=== PATIENT | female | born 2000 | race Caucasian/White ===

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

== ENCOUNTER 2019-01-07 08:40 | Emergency (ER) | payer BC ==
[2019-01-07 08:49] VITALS: BP 123/81
--- NOTE | 2019-01-07 09:28 | UC ---
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 no vision changes no photophobia, no corective lenses mild nasl congestion. no fever, chills. no [place] medications reviewed Not - History of Current Complaint Chief Complaint: UCEye Stated Complaint: LEFT EYE REDNESS Time Seen by Provider: 01/07/19 09:24 Hx Obtained From: Patient Hx Last Menstrual Period: 12/17/18 Pain Intensity: 0 - Allergies/Home Medications Allergies/Adverse Reactions: Allergies Allergy/AdvReac Type Severity Reaction Status Date / Time No Known Allergies Allergy Verified 01/07/19 08:46 PMH/Surg Hx/FS Hx/Imm Hx Previously Healthy: Yes - Surgical History Surgical History: None - Family History Known Family History: Positive: Cardiac Disease - mother, Hypertension Negative: Diabetes, Blood Disorder - Social History Occupation: Student Lives: Dormitory/Roommates Alcohol Use: Weekly Alcohol Amount: 8-10/ week Substance Use Type: None Substance Use Comment - Amount & Last Used: no longer uses marijuana Smoking Status (MU): Never Smoked Tobacco - Immunization History Vaccination Up to Date: Yes Review of Systems All Other Systems Reviewed And Are Negative: Yes Constitutional: Positive: Negative Eyes: Positive: Drainage, Eye Redness. Negative: Blurred Vision, Diplopia, Photophobia ENT: Positive: Sinus Congestion Physical Exam - Summary Physical Exam Summary: Vital Signs Reviewed: Yes A+Ox3, no distress Eyes: SYDNEE. EOM intact and full, eft eye injected, scant dried discharge medial canthus no photophonia. no stye with lid eversions, crisp fundoscopic ENT: Hearing grossly normal TM x 2 clear, turbinates boggy, mmoist, uvula midline, no exudate, no erythema Neck: Positive: Supple Respiratory: Positive: No respiratory distress, No accessory muscle use + CTA throughout no w/r Cardiovascular: RRR nl s1, s2 no m/r CBT <2 sec abd soft + BS nt/nd no guarding, no distension Musculoskeletal Exam: LUCIANO x 4 without difficulty Strength Intact, ROM Intact Neurological: Positive: Alert, + sensation throughout Psychological: Positive: Normal Response To Family Skin: Positive: no rash, no ecchymosis Triage Information Reviewed: Yes Vital Signs: Initial Vital Signs Temp 97.8 F 01/07/19 08:46 Pulse 67 01/07/19 08:46 Resp 14 01/07/19 08:46 BP 123/81 01/07/19 08:46 Pulse Ox 100 01/07/19 08:46 Eye Complaint Course/Dx - Course Course Of Treatment: Pt with mild nasal congestion and progessive left eye reddness with drainage. no fever chills no corrective lenses exam c/w conjunctivitis abx drops hygiene precaution warm soaks return precautions Pt comfortable and in agreement with plan - Differential Dx/Diagnosis Provider Diagnosis: Conjunctivitis Discharge - Sign-Out/Discharge Documenting (check all that apply): Patient Departure All imaging exams completed and their final reports reviewed: No Studies - Discharge Plan Condition: Stable Disposition: HOME Prescriptions: Polymyx/Trimethoprim OPTH* [Polytrim OPHTH*] 2 drop BOTH EYES Q8HR #1 btl Patient Education Materials: Conjunctivitis (ED) Forms: *School Release Referrals: [facility] [Outside] No Primary Care Phys,NOPCP [Primary Care Provider] - Additional Instructions: - apply eye drops to affected every 3 times a day for the next 5 days - okay to alternate ibuprofen (Advil, Motrin) 600mg and tylenol every 3 hours for pain. Take with food -apply warm, wet soaks to eye 2-3 times a day to help with secretions. Use a clean cloth each time - after you have been on eye drops for 2 days, change your pillowcase -contact the student health clinic or return with questions or concerns - Billing Disposition and Condition Condition: STABLE Disposition: Home
== END 2019-01-07 09:50 | disposition home or self-care (01) ==
LOC: UCCORT 08:40
DX: H10.9 Unspecified conjunctivitis (principal)
CPT/HCPCS: 99212; G0463